=== PATIENT | female | born 1955 | race Two or more races ===

== ENCOUNTER 2018-03-15 09:59 | Day surgery (SDC) | payer OTHER ==
[2018-03-15] MEDS ORDERED: MIDAZOLAM 1 MG/ML 2 ML INJ ×2 (12:25→12:26)
[2018-03-15] MEDS ORDERED: FENTAnyl 50 MCG/ML VIAL (12:26)
== END 2018-03-15 15:12 | disposition home or self-care (01) ==
LOC: GIL 09:59
DX: Z12.11 Encounter for screening for malignant neoplasm of colon (principal); K62.1 Rectal polyp; K64.8 Other hemorrhoids
CPT/HCPCS: 45380; 88305